=== PATIENT | female | born 1945 | race Caucasian/White ===

== ENCOUNTER 2021-07-18 20:58 | Inpatient (IN) | payer MEDICARE, BC ==
[~2021-07-18] VITALS: Ht 152.4 cm; Wt 62.6 kg
[2021-07-18] MEDS ORDERED: ATEN50TA PO (21:26)
[2021-07-18] MEDS ORDERED: APIX5TAB PO (21:26)
[2021-07-18] MEDS ORDERED: ROSU10TA2 PO (21:26)
[2021-07-18] MEDS ORDERED: BUPR100T6 PO (21:26)
[2021-07-18] MEDS ORDERED: LOSA25TA27 PO (21:26)
[2021-07-18] MEDS ORDERED: PANT40TA49 PO (21:26)
[2021-07-18] MEDS ORDERED: LATA2.5D15 EACHEYE (21:26)
--- NOTE | 2021-07-18 21:39 | NUR ---
Pt resting on chair at bedside. Daughter with patient.
--- NOTE | 2021-07-18 22:41 | NUR ---
Refusing labs, Dr. Brush notified
[2021-07-18] MEDS ORDERED: LORAZEPAM 0.5 MG TABLET PO ONE (23:00)
[2021-07-18] MEDS ORDERED: LORAZEPAM 0.5 MG TABLET ONE (23:09)
--- NOTE | 2021-07-18 23:30 | NUR ---
Report given to Reid BENNETT
--- NOTE | 2021-07-19 00:19 | NUR ---
Taken to [facility] in stable condition
[2021-07-19] MEDS ORDERED: LORAZEPAM 1 MG TABLET PO PRN (00:45)
[2021-07-19] MEDS ORDERED: ACETAMINOPHEN 325 MG TABLET PO PRN (00:45)
[2021-07-19] MEDS ORDERED: MAG HYDROX/AL HYDROX/SIMETH 30 ML LIQUID UDC PO PRN (00:45)
[2021-07-19] MEDS ORDERED: MAGNESIUM HYDROXIDE 30 ML LIQUID UDC PO PRN (00:45)
[2021-07-19 01:00] VITALS: BP 147/63
[2021-07-19] MEDS: ZOLPIDEM 5 MG TABLET PO PRN ×2 (01:09→22:09)
--- NOTE | 2021-07-19 02:52 | NUR ---
Received at 0015, from the emergency room, on a 72 hour hold for danger to self, a transfer from [facility]. According to the hold, she was found unresponsive in her care, after a "suspected intentional overdose on Ativan, after an argument, with her daughters". 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 Upon arrival, she denied being suicidal, but said she was depressed, and made a terrible mistake. She agreed to contract for safety while in the hospital. She was advised of her hold, and given the patients rights booklet .She stated that her daughter, that she cares for, had fallen and broken her leg, is now in the hospital, and that her family blames her. She feels that she is too old to do this anymore, and can not provide proper care any more, and needs more help. She was reassured that she was safe, and that manager social would attempt to assist her, and her family. She was given PRN Ambien for insomnia at 0109, and went to sleep. She continues to sleep. No distress noted, and is being monitored closely, for safety.
[2021-07-19 07:30] VITALS: BP 158/50
[2021-07-19] MEDS ORDERED: buPROPion XL 150 MG TAB.SR.24H PO SCH (10:00)
--- NOTE | 2021-07-19 10:59 | NUR ---
SE Admit Source: Pt was brought to [facility] on a 5150 hold for a danger to herself. Pt currently resides at [address] [place] [address] ([phone]) with her , Tomas ([phone]). Per pt, she will be discharging back home. SW will contact pt's to discuss discharge plan. SE will continue to work with pt, family and MD to ensure a safe and proper discharge plan.
--- NOTE | 2021-07-19 10:59 | NUR ---
SE Initial Discharge Note: Pt was brought to [facility] on a 5150 hold for a danger to herself. Pt currently resides at [address] [place] [address] ([phone]) with her , Tomas ([phone]). Per pt, she will be discharging back home. SE will contact pt's to discuss discharge plan. SE will continue to work with pt, family and MD to ensure a safe and proper discharge plan.
--- NOTE | 2021-07-19 11:00 | NUR ---
GPS: RECEIVED PT TODAY, ALERT AND ORIENTED X3. PT COOPERATIVE WITH CARE. HAD A SHOWER. PT REFUSED TAKING WELLBUTRIN MEDS STATING "I AM NOT DEPRESS, I DON'T NEED THAT MEDICATION".
[2021-07-19 12:00] VITALS: BP 134/52
--- NOTE | 2021-07-19 13:53 | NUR ---
GPS: SPOKE WITH PT DAUGHTER CARLOS RE: PT MEDICAL MEDS. DAUGHTER CONCERNED ABOUT PT HAVE NOT TAKE THE MEDS AND AFRAID PT WILL HAVE HIGH BLOOD PRESSURE. CHECKED BP 134/52 HR 55 T 97.4 R 18 O2SAT 97%. FAXED TO PHARMACY THE DISCHARGE MEDICATION FROM [facility]. PHARMACIST WILL FOLLOW UP WITH OCCUPATIONAL THERAPY SPECIALIST/
--- NOTE | 2021-07-19 14:39 | NUR ---
GPS: SPOKE WITH PHARMACIST JAYLEN RE: PT MED RECON. PER JAYLEN, DR MCGARRY WILL MAKE THE MED RECON.
--- NOTE | 2021-07-19 15:31 | NUR ---
GPS: PT COMING BACK AND FORTH AT NURSES STATION ASKING FOR HER MEDS, GETTING ANXIOUS. EXPLAINED TO PT THAT I ALREADY CALLED MD AND PHARMACIST AND JUST WAITING FOR THE MED RECON FOR MEDS TO BE POSTED. OFFERED ATIVAN FOR ANXIETY BUT REFUSED.
--- NOTE | 2021-07-19 15:56 | NUR ---
GPS: SPOKE WITH CARLOS (DAUGHTER OF PT), WOULD LIKE TO GET AN UPDATE FROM DR MARK RE: WELLBUTRIN, THAT MIGHT HAVE A SIDE EFFECT OF PALPITATION AND COULD INTERFER WITH PT A. FIBRILATION.
[2021-07-19 16:00] VITALS: BP 146/56
--- NOTE | 2021-07-19 16:25 | NUR ---
GPS: GIVEN THE LOSARTAN 75MG AND ATENOLOL 50MG PO. PT A BIT CONCERNED ABOUT THE 50MG ATENOLOL COZ SHE SAID SHE ONLY TAKES 25MG. TOLD PT THAT IT WAS THE DISCHARGE MEDS DOSE FROM [facility]. ABLE TO SPEAK WITH CARLOS (DAUGHTER) AND PER DAUGHTER, TAKE THE MED DOSE RIGHT NOW AND SEE IF ITS OKAY WITH PT WITH NO UNDESIRED EFFECT. AND TOMORROW, THEY'LL ASSESS IF PT IS FEELING OKAY. DAUGHTER REQUESTING FOR METAL SPRAYER PRODUCTION CONSULT RE: A. FIB AND MED DOSAGE. WILL COORDINATE WITH .
[2021-07-19] MEDS ORDERED: LOSARTAN POTASSIUM 25 MG TABLET PO ONE (16:30)
[2021-07-19] MEDS ORDERED: ATENOLOL 50 MG TABLET PO ONE (16:30)
--- NOTE | 2021-07-19 18:48 | NUR ---
GPS: PT REQUESTED ATIVAN. PT TOOK ONLY HALF TABLET PER PT, SHE ONLY TAKES 0.5MG. WILL REQUEST PSYCHIATRIST TO CHANGE THE DOSE.
--- NOTE | 2021-07-19 18:52 | NUR ---
GPS: DR MARK APPROVED TO DECREASE THE DOSAGE OF ATIVAN 0.5MG SAME SCHEDULE PRN
[2021-07-19] MEDS ORDERED: LORAZEPAM 0.5 MG TABLET PO PRN (19:00)
[2021-07-19 20:00] VITALS: BP 119/72
[2021-07-19] MEDS: APIXABAN 5 MG TABLET PO SCH (20:43)
[2021-07-19] MEDS: LATANOPROST OPHT DROP 2.5 ML BOTTLE EACHEYE SCH (20:46)
[2021-07-19] MEDS ORDERED: Medication Not On Formulary EA (Rosuvastatin Calcium (Crestor) 10 MG) PO SCH (21:00)
[2021-07-19] MEDS: ATORVASTATIN 20 MG TABLET PO SCH (21:59)
--- NOTE | 2021-07-20 06:28 | NUR ---
Received lying in bed, depressed and isolative, but denies feeling suicidal. Slept well all night, after taking Ambien. No distress noted.
[2021-07-20] MEDS ORDERED: hydrALAZINE HCL 25 MG TABLET PO PRN (07:45)
[2021-07-20 07:49] VITALS: BP 136/55
[2021-07-20 07:49] LABS: HEMATOCRIT 35.9 % (31.2-41.9); MEAN CORPUSCULAR HEMOGLOBIN 31.4 uug (24.7-32.8); MEAN CORPUSCULAR VOLUME 92.9 fL (75.5-95.3); PLATELET COUNT (AUTO) 368 K/uL (179-408)
[2021-07-20 08:20] LABS: ALANINE AMINOTRANSFERASE 52 U/L (14-59); ALKALINE PHOSPHATASE 47 U/L (50-136); ASPARTATE AMINOTRANSFERASE 16 U/L (15-37); BILIRUBIN,TOTAL 0.5 mg/dL (0.2-1.0); CARBON DIOXIDE 25 mmol/L (21-32); CHLORIDE 102 mmol/L (98-107); CREATININE 1.1 mg/dL (0.6-1.3); GLUCOSE 99 mg/dL (74-106); MAGNESIUM 2.4 mg/dL (1.8-2.4); POTASSIUM 4.5 mmol/L (3.5-5.1); TOTAL PROTEIN, SERUM 6.3 g/dL (6.4-8.2); UREA NITROGEN, BLOOD 21 mg/dL (7-18)
[2021-07-20 08:49] LABS: THYROID STIMULATING HORMONE 2.684 mIU/mL (0.358-3.740)
[2021-07-20] MEDS: APIXABAN 5 MG TABLET PO SCH ×2 (08:51→16:58)
[2021-07-20] MEDS: PANTOPRAZOLE SODIUM 40 MG TABLET.DR PO SCH (08:52)
[2021-07-20] MEDS: LOSARTAN POTASSIUM 50 MG TABLET PO SCH (08:53)
[2021-07-20] MEDS: ATENOLOL 25 MG TABLET PO SCH (08:58)
[2021-07-20] MEDS ORDERED: ATENOLOL 50 MG TABLET PO SCH ×2 (09:00)
[2021-07-20] MEDS: PAROXETINE HCL 10 MG TABLET PO SCH (13:04)
--- NOTE | 2021-07-20 15:43 | NUR ---
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 Compliant with routine meds. denies any discomfort. Encouraged participation in her group therapy .Making her simple needs known
--- NOTE | 2021-07-20 16:33 | NUR ---
Gps/Lunchroom Monitor- Texted Dr Edward Resendiz, informed patient requesting miralax for constipations, orders received, informed prune juices was given with some result per pt. but needing something stronger per pt.
[2021-07-20] MEDS ORDERED: MIRALAX 17 GM POWD.PACK PO PRN (16:45)
[2021-07-20 17:46] VITALS: BP 134/77
[2021-07-20] MEDS: LORAZEPAM 0.5 MG TABLET PO PRN (19:05)
[2021-07-20 20:25] VITALS: BP 133/51
[2021-07-20] MEDS: ATORVASTATIN 20 MG TABLET PO SCH (21:00)
[2021-07-20] MEDS: LATANOPROST OPHT DROP 2.5 ML BOTTLE EACHEYE SCH (21:58)
[2021-07-20] MEDS: ZOLPIDEM 5 MG TABLET PO PRN (22:52)
--- NOTE | 2021-07-21 03:22 | NUR ---
Received lying in bed. Remains depressed and isolative, but denies feeling suicidal. Encouraged to participate in group activities. She has lept well all night, since taking Ambien. No distress noted.
[2021-07-21] MEDS: PANTOPRAZOLE SODIUM 40 MG TABLET.DR PO SCH (07:24)
[2021-07-21 07:30] VITALS: BP 147/64
[2021-07-21] MEDS: LOSARTAN POTASSIUM 50 MG TABLET PO SCH (09:00)
[2021-07-21] MEDS: ATENOLOL 25 MG TABLET PO SCH (09:00)
[2021-07-21] MEDS: APIXABAN 5 MG TABLET PO SCH ×2 (09:02→17:19)
[2021-07-21] MEDS: PAROXETINE HCL 10 MG TABLET PO SCH (09:03)
[2021-07-21] MEDS: ENSURE ENLIVE (VAN) 240 ML LIQUID PO SCH (09:05)
[2021-07-21 16:00] VITALS: BP 158/57
[2021-07-21] MEDS: LORAZEPAM 0.5 MG TABLET PO PRN (17:29)
[2021-07-21 17:30] VITALS: BP 149/64
--- NOTE | 2021-07-21 17:30 | NUR ---
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 no discomfort noted. Encouraged continued verbalizations of her feelings .Per dressing room attendant Jade , one of her daughter called ( Keira) ,claimed she was verbally threatening , will report Hosp[employer] to Medicare, that there's nothing being done to her mother , wants to speak to the Psychiatrist ,, wants him page right away. Nurse Monitoring Jade informed daughter Keira Esau TUCK POINTER HELPER covering for the psychiatrist , wants Psychiatrist instead .
[2021-07-21 20:00] VITALS: BP 121/60
[2021-07-21] MEDS: ATORVASTATIN 20 MG TABLET PO SCH (20:31)
[2021-07-21] MEDS: LATANOPROST OPHT DROP 2.5 ML BOTTLE EACHEYE SCH (21:00)
[2021-07-21] MEDS: ZOLPIDEM 5 MG TABLET PO PRN (21:48)
[2021-07-22] MEDS: PANTOPRAZOLE SODIUM 40 MG TABLET.DR PO SCH (06:20)
--- NOTE | 2021-07-22 06:51 | NUR ---
GPS: Remain calm and cooperative. patient is depressed and isolative, but denies feeling suicidal. Slept 7.45 hrs through the night, after taking Ambien. No distress noted. continue plan of care.
[2021-07-22 08:14] VITALS: BP 154/59
[2021-07-22] MEDS: LOSARTAN POTASSIUM 50 MG TABLET PO SCH (08:43)
[2021-07-22] MEDS: PAROXETINE HCL 10 MG TABLET PO SCH (08:44)
[2021-07-22] MEDS: ATENOLOL 25 MG TABLET PO SCH (08:45)
[2021-07-22] MEDS: APIXABAN 5 MG TABLET PO SCH ×2 (08:45→17:06)
[2021-07-22] MEDS: ENSURE ENLIVE (VAN) 240 ML LIQUID PO SCH (08:46)
[2021-07-22 14:38] VITALS: BP 132/53
--- NOTE | 2021-07-22 14:59 | NUR ---
Gps/Nursing Techn- Stayed in her room most of the time. Encouraged to stay in the dinning room during her meals. Making her simple needs known to the staff , isolative , napping at this time.
[2021-07-22 17:03] VITALS: BP 132/53
[2021-07-22 20:20] VITALS: BP 141/56
[2021-07-22] MEDS: ATORVASTATIN 20 MG TABLET PO SCH (21:00)
[2021-07-22] MEDS: ZOLPIDEM 5 MG TABLET PO PRN (21:18)
[2021-07-22] MEDS: LATANOPROST OPHT DROP 2.5 ML BOTTLE EACHEYE SCH (21:23)
--- NOTE | 2021-07-23 06:48 | NUR ---
Received lying in bed, depressed and isolative, but denies feeling suicidal. Slept well all night, after taking Ambien. No distress noted.
[2021-07-23] MEDS: PANTOPRAZOLE SODIUM 40 MG TABLET.DR PO SCH (06:58)
[2021-07-23 08:05] VITALS: BP 142/54
[2021-07-23] MEDS: LOSARTAN POTASSIUM 50 MG TABLET PO SCH (08:47)
[2021-07-23] MEDS: APIXABAN 5 MG TABLET PO SCH ×2 (08:48→16:53)
[2021-07-23] MEDS: ATENOLOL 25 MG TABLET PO SCH (08:48)
[2021-07-23] MEDS: PAROXETINE HCL 10 MG TABLET PO SCH (08:49)
[2021-07-23] MEDS: ENSURE ENLIVE (VAN) 240 ML LIQUID PO SCH (08:49)
--- NOTE | 2021-07-23 13:10 | NUR ---
SE Family Contact: Pt's cousin (DPOA) Alena ([phone]) called SE and expressed her concerns regarding pt's stay at [facility]. Alena verbalized in an angry tone that she is upset with pt's admission at [facility] and would like to discharge her immediately. Alena did not allow SW to speak as she verbalized, "I will take this to the higher extremes if I need to because she is not psychotic she is just anxious she doesn't need to be there." SE stated, "I understand" and Alena replied, "Don't interrupt me I am not finished talking." despite SE's comment being respectful and agreeable. SE continued to state that I will update her as soon as I am able to connect with the doctor expressing her concerns for sooner discharge.
[2021-07-23 16:12] VITALS: BP 130/68
--- NOTE | 2021-07-23 19:13 | NUR ---
GPS: Nursing Notes: Mood Disturbance: Depression Patient is awake and responding to her name, cooperative with nursing care, compliant with her medications, depressed mood, participating in therapeutic groups, believes that she is getting better with her medication, cooperative with nursing care, continue to monitor for safety, continue with treatment plan.
[2021-07-23 20:20] VITALS: BP 138/52
[2021-07-23] MEDS: LORAZEPAM 0.5 MG TABLET PO PRN (20:54)
[2021-07-23] MEDS: LATANOPROST OPHT DROP 2.5 ML BOTTLE EACHEYE SCH (20:55)
[2021-07-23] MEDS: ATORVASTATIN 20 MG TABLET PO SCH (21:00)
--- NOTE | 2021-07-24 02:10 | NUR ---
VISUAL CHECKS AND ROUNDS MADE, PATIENT IS COMFORTABLY SLEEPING. WILL CONTINUE TO MONITOR.
[2021-07-24] MEDS: PANTOPRAZOLE SODIUM 40 MG TABLET.DR PO SCH (06:01)
[2021-07-24] MEDS: PAROXETINE HCL 10 MG TABLET PO SCH (08:55)
[2021-07-24 08:57] VITALS: BP 138/53
[2021-07-24] MEDS: LOSARTAN POTASSIUM 50 MG TABLET PO SCH (08:57)
[2021-07-24] MEDS: ATENOLOL 25 MG TABLET PO SCH (08:57)
[2021-07-24] MEDS: ENSURE ENLIVE (VAN) 240 ML LIQUID PO SCH (08:58)
[2021-07-24] MEDS: APIXABAN 5 MG TABLET PO SCH (08:58)
--- NOTE | 2021-07-24 09:19 | NUR ---
Discharge Note: Pt will be discharged to HOME [address] [place] [address] via [facility] at 11AM. SE spoke with pts daughter, Keira ([phone]) who states they are ready to accept the patient today. Pt is aware and agreeable with discharge plans. Pt is alert and oriented x4, is unable to plan for self-care at this time; however, is willing to accept care by her family back home. Pt denies any suicidal or homicidal ideation. Pt will follow-up with her outpatient Psychiatrist that Keira stated to SE she will arrange for the pt herself. Keira stated she does not require the [facility] assistance with an outpatient psychiatrist appointment. SE stated she will be available to help with resources and appointments if needed. Pt presents with calm mood and congruent affect. PHARMACY: [facility] ([phone]) [address] [place] [address].
--- NOTE | 2021-07-24 11:15 | NUR ---
GPS: Nursing Notes: Discharge Notes: Patient is awake and responding to her name, cooperative with nursing care, compliant with her medications, following staff directions, denies SI/HI, denies AH/VH, denies pain or discomfort, denies SOB, discharge home with her daughter Macy Crockett at [address], [place] [address]. Patient's daughter - Keira will follow up with patient's own psychiatrist and primary care physician as soon as possible, took all her belongings with her, instructions and prescription given to her daughter - Keira, transported home with Keira via private vehicle.
== END 2021-07-24 11:15 | disposition home or self-care (01) | DRG 885 ==
LOC: ER 21:02 → GPS 23:59
PROVIDERS: ADMIT Psychiatry & Neurology Psychiatry; ATTEND Internal Medicine
DX: F33.2 Major depressive disorder, recurrent severe without psychotic features (principal); N18.9 Chronic kidney disease, unspecified; T42.4X2D Poisoning by benzodiazepines, intentional self-harm, subsequent encounter; E03.9 Hypothyroidism, unspecified; I48.0 Paroxysmal atrial fibrillation; F41.9 Anxiety disorder, unspecified; Z79.01 Long term (current) use of anticoagulants; E66.9 Obesity, unspecified; Z68.27 Body mass index [BMI] 27.0-27.9, adult; E78.5 Hyperlipidemia, unspecified; I12.9 Hypertensive chronic kidney disease with stage 1 through stage 4 chronic kidney disease, or unspecified chronic kidney disease; Z79.899 Other long term (current) drug therapy
CPT/HCPCS: 36415; 83735; 84100; 84443; 84484; 85025; 93005; 97161; A4663